=== PATIENT | female | born 1950 | race Caucasian/White ===

== ENCOUNTER → 2024-02-02 10:11 | Outpatient (REF) | payer MEDICARE, SELFPAY | LOC: RCS 10:11 | PROVIDERS: ATTENDING PHYSICIAN Surgery; FAMILY PHYSICIAN Internal Medicine | DX: Z01.810 Encounter for preprocedural cardiovascular examination (principal) | CPT/HCPCS: 93005 ==

== ENCOUNTER 2024-06-25 14:48 | Emergency (ER) | payer MEDICARE, SELFPAY ==
[2024-06-25] VITALS (9 sets, daily range): BP systolic 123–176; BP diastolic 70–121; BMI 23.4
--- NOTE | 2024-06-25 14:59 | ED.PDOC.TRB ---
ED Provider Triage
-
Patient seen by provider in Triage?: Seen in Triage
Attestation: A medical screening examination has been initiated by a qualified medical provider. Based on the assessment performed at this time, it has been determined that an emergent medical condition may exist and the patient has been informed
that further medical evaluation and possible additional diagnostic testing may be needed.
HPI: 74-year-old female with presents for evaluation of left arm heaviness associated with chest discomfort beginning today. The arm symptoms have been ongoing for the past several days. She has a known clotting disorder but is been compliant with
her Eliquis. No history of prior cardiac disease denies any exertional symptoms
GENERAL: Alert , in no apparent distress
EYE: No visual abnormalities.
NECK: Trachea midline
ENT: No visible abnormalities.
LUNGS: No acute respiratory distress
NEUROLOGICAL: Alert and oriented
SKIN: Skin intact. No visible changes.
MUSCULOSKELETAL: Moving extremities normally
PSYCH: Normal and appropriate interaction.
Assessment: Initial triage EKG is nonischemic. Patient appears clinically well does not pain external picture for cardiac angina nevertheless we will obtain cardiac labs including troponin
This is a medical evaluation conducted in person to initiate diagnostic evaluation and provide initial therapeutics. Please see further documentation by the treating clinician.
[2024-06-25 15:16] LABS: % Basophils 0.4 % (0-2); % Immature Granulocytes 1.3 % (0-0.5); % Monocytes 8.4 % (1.7-9.3); % Neutrophils 62.9 % (42.2-75.2); Absolute Eosinophils 0.1 10^3/uL (0-0.7); Absolute Immature Granulocytes 0.1 10^3/uL (0-0.05); Absolute Lymphocytes 1.8 10^3/uL (1.2-3.4); Absolute Monocytes 0.6 10^3/uL (0.1-0.6); Absolute Neutrophils 4.3 10^3/uL (1.4-6.5); Hematocrit 39.3 % (37.0-47.0); Hemoglobin 13.3 g/dL (12.0-16.0); Mean Corp Hgb Conc. 33.8 g/dL (33.0-37.0); Mean Corpuscular Hgb 30.2 pg (27.0-31.0); Mean Corpuscular Volume 89.3 fL (81.0-99.0); Mean Platelet Volume 9.9 fL (7.4-10.4); Nucleated Red Blood Cells % 0 %; Platelet Count 213 10^3/uL (130-400); Red Cell Dist. Width 14.2 % (11.5-14.5); White Blood Cell Count 6.8 10^3/uL (4.8-10.8)
[2024-06-25 15:31] LABS: ALT (SGPT) 18 U/L (0-35); AST (SGOT) 31 U/L (14-36); Albumin 4.9 g/dl (3.5-5.0); Alkaline Phosphatase 104 U/L (38-126); Blood Urea Nitrogen 19 mg/dl (7-17); Carbon Dioxide 25 mmol/L (22-30); Chloride 99 mmol/L (98-107); Glucose 120 mg/dl (70-99); Potassium 4.6 mmol/L (3.5-5.1); Sodium 138 mmol/L (135-145); Total Bilirubin 0.6 mg/dl (0.2-1.3); Total Protein 7.6 g/dl (6.3-8.2); eGFR > 60.00
[2024-06-25 15:43] LABS: Troponin I < 0.012 ng/ml
--- NOTE | 2024-06-25 17:53 | ED.GENMED ---
History of Present Illness
General
Chief Complaint: Cardiac Symptoms
Source: patient
Exam Limitations: none
Time Seen by Provider: 06/25/24 15:34
History of Present Illness
History of Present Illness:
Patient is a 74-year-old female with past medical history of hypertension, hyperlipidemia, coagulopathy for which she is chronically anticoagulated on Eliquis, who presents to the emergency department for evaluation of chest pain. Patient reports
that over the past 4 days, the patient has had intermittent pain over her left arm. She reports that it starts about usp down her upper arm and then extends about usp down into her forearm. Patient reports that she never gets pain into her
hand or fingers. She denies that she gets pain into her shoulder. Patient reports this pain seems to come and go, she reports it is actually worse at night when she is trying to sleep. Patient reports that associate with the pain is some numbness
to the same distribution. Patient denies any numbness of the hand or fingers. Patient denies any weakness of the left upper extremity. Patient reports that she thought was musculoskeletal in etiology but this morning became concerned when she had
a slight chest heaviness. Patient became concerned that this could be her heart and decided to come to the emergency department. Patient denies that the chest heaviness is present currently. Patient denies any recent diaphoresis, shortness of
breath, nausea, vomiting. Patient reports that she does see a hardness inspector and has a Holter monitor scheduled for later this week. She reports that she has had negative stress test in the past but none recently. Patient denies any known trauma or
injury to the left arm but states that she did have a mastectomy in October and just recently started to lift with weights. She reports that her weights are quite light though and are typically 2.5 or 5 pounds.
Past History
Past History
ED Past Medical History: Other (Hypercoagulable state, pulmonary embolism, DJD)
Social History
Tobacco: Former smoker
Alcohol: None
Drug: None
Personal:
Review of Systems
Review of Systems
Allergies reviewed?: Yes
All Other Systems: Not applicable
Constitutional: Reports no symptoms
EENT: Reports no symptoms
Respiratory: Reports no symptoms
Cardiac: Reports chest pain; Denies diaphoresis, palpitations or syncope
ABD/GI: Reports no symptoms
: Reports no symptoms
Musculoskeletal: Reports other (left arm pain)
Skin: Reports no symptoms
Neurological: Reports numbness; Denies weakness
Endocrine: Reports no symptoms
Hematologic/Lymphatic: Reports no symptoms
Psychiatric: Reports no symptoms
Phy Exam
General Physical Exam
General Presentation: well appearing and no apparent distress
General Skin: warm and dry
General Habitus: normal
General Mental: alert
General Hydration: appears well hydrated
ENT Exam
ENT Exam: EOMI, pharynx normal, neck supple and normocephalic
Eye Exam
Eye Exam: PERRL, cornea clear and conjunctiva normal
Cardiovascular Exam
Cardiovascular Exam: regular rate/rhythm, no edema, no murmur and normal peripheral pulses
Pulmonary Exam
Pulmonary Exam: lungs clear, no respiratory distress, no rales, no crackles, no rhonchi, no stridor, no wheezing and no cough
Gastrointestinal Exam
Gastrointestinal Exam: normal bowel sounds, non tender, soft, no organomegaly, no pulsatile mass and non distended
Neurological Exam
Neurological Exam: alert, oriented x3, no motor deficits and speech normal
Musculoskeletal Exam
Musculoskeletal Exam: full ROM, no edema and neuro vasc intact
Skin Exam
Skin Exam: normal color, warm/dry, no rash and no petechia
Psychiatric Exam
Psychiatric Exam: normal mood/affect
Course
Orders/Labs/Results
Orders:
Orders
06/25/24 14:49
EKG [Electrocardiogram (*1)] Urgent
Reason for Study: Palpitations
EKG- Treatment ONCE
06/25/24 15:09
Complete Blood Count/With Diff Urgent
Comprehensive Metabolic Panel Urgent
Troponin I Urgent
06/25/24 16:07
CR Chest - 2 Views Urgent
Comment:
Reason For Exam: chest pain
Abnormal Lab Results
06/25/24
15:09
Abs Immat Gran (auto) 0.1 H 10^3/uL
(0-0.05)
Immature Gran % 1.3 H %
(0-0.5)
BUN 19 H mg/dl
(7-17)
Glucose 120 H mg/dl
(70-99)
06/25/24 15:09
06/25/24 15:09
Vital Signs
Initial and Last Documented VS:
Initial Vital Signs
Temp Pulse Resp BP Pulse Ox
97.4 F 64 20 176/88 97
06/25/24 14:53 06/25/24 14:53 06/25/24 14:53 06/25/24 14:53 06/25/24 14:53
Last Documented Vital Signs
Temp Pulse Resp BP Pulse Ox
97.4 F 63 15 123/70 97
06/25/24 14:53 06/25/24 18:50 06/25/24 18:50 06/25/24 18:50 06/25/24 18:50
*EKG
Interpreted by ED Provider?: Yes
EKG Intrepretation Date: 06/25/24
EKG Intrepretation Time: 02:51
Interpretation: abnormal
Comparison EKG: no changes
Heart Rate: 63
Rate: normal
Rhythm: sinus
Roberts: left axis deviation
Interval: normal interval
QRS Pattern: normal QRS
Ischemia: non-specific ST changes
*Critical Care Note
Total Time (30-74mins, 75-104mins- exclusive of procedures): Not Applicable
Update Note
Update Note:
74-year-old female with history of hypertension, hyperlipidemia presents to the emergency department for evaluation of several days of intermittent left arm pain associated with some numbness in the left arm. Patient reports that it is only a
portion of her arm and does not extend into her hand or fingers. Patient reports this morning she did have an episode of chest heaviness. Patient states she is currently asymptomatic. On arrival, pt is initially hypertensive, however, this
improved during her ED stay, afebrile. On exam, pt is very well-appearing, she is in NAD, she has a normal cardiopulmonary exam, FROM of the LUE and is NVI. EKG was performed and is unchanged from prior. CXR demonstrates NAD. Labs are
unremarkable including negative troponin. Pt has remained stable for the entirety of her ED stay without recurrence of her chest heaviness. I suspect the patient's symptoms may be due to the fact that she started lifting weights again a few days
ago. Pt has a cardiology appointment later this week which she was encouraged to keep. Feel that the pt is safe for discharge to home with instructions on supportive care measures along with return precautions. She expressed understanding of the
plan and agreed.
ED Attending Note
-
Portions of this chart may have been created with voice recognition software.� Occasional wrong word or��sound alike� substitutions may have occurred due to the inherent limitations of voice recognition software.
Discharge Plan
Departure
Patient Disposition: Home (Routine Discharge)
Date of Disposition: 06/25/24
Time of Disposition: 17:41
Patient with high blood pressure during this ER visit?: Yes
Condition: Good
Covid-19: Not Applicable
Discharge Problem:
Arm pain, left, Arm paresthesia, left
Instructions: Paresthesia (DC), Musculoskeletal Pain
Prescriptions:
No Action
atenolol 25 MG tablet
25 mg PO DAILY
apixaban [Eliquis] 2.5 MG tablet
2.5 mg PO BID
amlodipine 5 MG tablet
5 mg PO HS
esomeprazole magnesium [Nexium 24HR] 20 MG capsule,delayed release(DR/EC)
20 mg PO DAILY
prochlorperazine maleate 5 MG tablet
5 mg PO Q8HPRN PRN (Reason: headaches or nausea) Qty: 15 1RF
Referrals:
Alma Rosa Borja MD [Family Provider] - Follow up in 2-3 days (Call for follow-up appointment)
Activity Restrictions/Additional Instructions:
You were seen in the emergency department for evaluation of intermittent pain in the left arm associated with intermittent numbness. You also notes a very mild short-lived discomfort in your chest. While you were in the emergency department you
had a normal EKG, CXR, and blood work. We do not believe your symptoms are due to a problem with your heart. Please continue to take your home medications. Please follow up with your primary care provider for further evaluation and treatment.
You may continue to take Tylenol for pain. Please return to the emergency department for severe chest pain, shortness of breath, persistent vomiting,
Interventions
Interventions:
*Risk Screen - Suicide Last Done: 06/25/24 14:53
*General Assessment Last Done: 06/25/24 14:53
*Neglect/Abuse Screening Last Done: 06/25/24 14:53
*ED COVID-19 Vaccine History Last Done: 06/25/24 16:39
*Nursing Disposition Last Done: 06/25/24 18:50
ED- Pulmonary Assessment Last Done: 06/25/24 16:39
ED- Cardiac Assessment Last Done: 06/25/24 16:37
Discharge Date and Time
Discharge Date/Time: 06/25/24 18:52
Print Language: BAHRAINI
== END 2024-06-25 18:52 | disposition home or self-care (01) ==
LOC: EMR 14:48
PROVIDERS: Physician Assistant; EMERGENCY PHYSICIAN Emergency Medicine; FAMILY PHYSICIAN Internal Medicine
DX: R20.2 Paresthesia of skin (principal); M79.602 Pain in left arm; R07.89 Other chest pain; R20.0 Anesthesia of skin; I10 Essential (primary) hypertension; E78.5 Hyperlipidemia, unspecified; D68.9 Coagulation defect, unspecified; Z79.01 Long term (current) use of anticoagulants; Z86.711 Personal history of pulmonary embolism; Z87.891 Personal history of nicotine dependence; Z90.10 Acquired absence of unspecified breast and nipple; Z88.2 Allergy status to sulfonamides; Z88.8 Allergy status to other drugs, medicaments and biological substances; Z91.040 Latex allergy status
CPT/HCPCS: 99283; 71046; 80053; 84484; 85025; 93005

== ENCOUNTER → 2024-07-11 09:49 | Outpatient (REF) | payer MEDICARE, SELFPAY | LOC: RCS 09:49 | PROVIDERS: ATTENDING PHYSICIAN Internal Medicine; REFERRING PHYSICIAN Student in an Organized Health Care Education/Training Program | DX: R55 Syncope and collapse (principal) | CPT/HCPCS: 93225; 93226 ==

== ENCOUNTER → 2024-07-15 15:48 | Outpatient (REF) | payer MEDICARE, SELFPAY | LOC: HWRAD 15:48 | PROVIDERS: ATTENDING PHYSICIAN Internal Medicine | DX: M54.12 Radiculopathy, cervical region (principal) | CPT/HCPCS: 72050 ==

== ENCOUNTER → 2024-08-21 12:58 | Outpatient (REF) | payer MEDICARE, SELFPAY | LOC: MRI 3T 12:58 | PROVIDERS: ATTENDING PHYSICIAN Internal Medicine; REFERRING PHYSICIAN Psychiatry & Neurology Neurology | DX: R51.9 Headache, unspecified (principal); Z79.01 Long term (current) use of anticoagulants; Z87.898 Personal history of other specified conditions; M54.12 Radiculopathy, cervical region | CPT/HCPCS: 70551; 72141 ==

== ENCOUNTER 2024-11-02 19:50 | Emergency (ER) | payer MEDICARE, SELFPAY ==
[2024-11-02 19:55] VITALS: BP 167/90
[2024-11-02 20:16] VITALS: BP 147/78
[2024-11-02 20:24] LABS: % Basophils 0.3 % (0-2); % Immature Granulocytes 0.1 % (0-0.5); % Lymphocytes 23.9 % (20.5-51.1); % Monocytes 8.7 % (1.7-9.3); Absolute Eosinophils 0.1 10^3/uL (0-0.7); Absolute Lymphocytes 1.7 10^3/uL (1.2-3.4); Absolute Monocytes 0.6 10^3/uL (0.1-0.6); Absolute Neutrophils 4.6 10^3/uL (1.4-6.5); Hematocrit 38.8 % (37.0-47.0); Hemoglobin 13.4 g/dL (12.0-16.0); Mean Corp Hgb Conc. 34.5 g/dL (33.0-37.0); Mean Corpuscular Hgb 30.5 pg (27.0-31.0); Mean Corpuscular Volume 88.2 fL (81.0-99.0); Mean Platelet Volume 9.9 fL (7.4-10.4); Nucleated Red Blood Cells % 0 %; Platelet Count 185 10^3/uL (130-400); Red Cell Dist. Width 13.5 % (11.5-14.5)
[2024-11-02 20:34] LABS: INR 1.02; PT 13.7 Sec (11.4-14.6)
[2024-11-02 20:43] LABS: ALT (SGPT) 16 U/L (0-35); AST (SGOT) 29 U/L (14-36); Albumin 4.7 g/dl (3.5-5.0); Alkaline Phosphatase 122 U/L (38-126); Blood Urea Nitrogen 19 mg/dl (7-17); Calcium 9.8 mg/dl (8.4-10.2); Carbon Dioxide 25 mmol/L (22-30); Chloride 98 mmol/L (98-107); Glucose 102 mg/dl (70-99); Potassium 4.3 mmol/L (3.5-5.1); Sodium 132 mmol/L (135-145); Total Bilirubin 0.3 mg/dl (0.2-1.3); Total Protein 7.4 g/dl (6.3-8.2); eGFR > 60.00
[2024-11-02 20:44] VITALS: BP 147/84
[2024-11-02 20:48] LABS: Troponin I < 0.012 ng/ml
[2024-11-02 21:00] VITALS: BP 127/76
--- NOTE | 2024-11-02 21:14 | ED.GENMED ---
History of Present Illness
General
Chief Complaint: Chest Pain
Source: patient and spouse
Time Seen by Provider: 11/02/24 20:00
History of Present Illness
History of Present Illness:
74-year-old female presents after she developed chest pain at home. Patient states this mild pain in the center of her chest. Patient states she was resting comfortably when it came on. She then checked her blood pressure and was noted to be
high. She is anticoagulated on Eliquis due to history of hypercoagulable state. Patient states the pain is resolved and only lasted a few minutes. She denies shortness of breath or palpitations. No history of coronary disease.
Past History
Past History
ED Past Medical History: Other (Hypercoagulable state, pulmonary embolism, DJD)
Social History
Tobacco: Former smoker
Alcohol: None
Drug: None
Personal:
Phy Exam
Physical Exam
Physical Exam:
CONSTITUTIONAL Patient alert and oriented to person, place and time. Well-appearing. Vital signs reviewed.
HEAD atraumatic, normocephalic.
EYES eyelids normal to inspection, Extraocular muscles intact, Conjunctiva normal, Sclera normal.
NECK normal range of motion, Trachea midline, no jugular venous distention.
RESPIRATORY CHEST No respiratory distress noted, Chest expansion equal, Bilateral breath sounds clear.
CARDIOVASCULAR regular rate and rhythm, Heart sounds normal.
ABDOMEN abdomen nontender, Bowel sounds normal. No distention.
BACK normal inspection, no obvious deformities
UPPER EXTREMITY range of motion normal, Motor strength normal, no cyanosis, no edema.
LOWER EXTREMITY range of motion normal, Motor strength normal, no cyanosis, no edema.
NEURO Speech normal, No focal motor deficits, Clem coma scale 15, Memory normal, Cranial Nerves intact to screening exam.
SKIN skin warm, dry, and normal in color.
Scores
Heart Score for Chest Pain Patients
STEMI patient?: No
History: Slightly or Non-Suspicious
ECG: Normal
Age: >/= 65 years
Risk Factors: 1 or 2 Risk Factors
Troponin: </= Normal Limit
Heart Score for Chest Pain Patients: 3
Heart Score Risk: 2.5% MACE over next 6 weeks
Course
Orders/Labs/Results
Orders:
Orders
11/02/24 19:51
EKG [Electrocardiogram (*1)] Urgent
Reason for Study: Chest Pain
EKG- Treatment ONCE
11/02/24 20:18
Complete Blood Count/With Diff Urgent
Comprehensive Metabolic Panel Urgent
PT/INR [Prothrombin Time] Urgent
Troponin I Urgent
11/02/24 21:14
CR Chest - 2 Views Urgent
Comment:
Reason For Exam: cp
11/02/24 21:16
EKG- Treatment ONCE
11/02/24 23:15
EKG [Electrocardiogram (*1)] Urgent
Reason for Study: Fatigue / Weakness
11/02/24 23:18
Troponin I Urgent
Abnormal Lab Results
11/02/24
20:18
Sodium 132 L mmol/L
(135-145)
BUN 19 H mg/dl
(7-17)
Glucose 102 H mg/dl
(70-99)
11/02/24 20:18
11/02/24 20:18
Vital Signs
Initial and Last Documented VS:
Initial Vital Signs
Temp Pulse Resp BP Pulse Ox
98.0 F 66 18 167/90 96
11/02/24 19:55 11/02/24 19:55 11/02/24 19:55 11/02/24 19:55 11/02/24 19:55
Last Documented Vital Signs
Temp Pulse Resp BP Pulse Ox
98.0 F 74 16 117/72 98
11/02/24 19:55 11/03/24 00:04 11/03/24 00:04 11/03/24 00:04 11/03/24 00:04
MDM/Problems Addressed
Differential Diagnosis Includes:
Musculoskeletal chest pain, acute coronary syndrome, pulmonary embolism, pneumothorax, pneumonia, aortic dissection, GERD
MDM/Problems Addressed:
Chest pain
Acute Exacerbation and/or Progression of Chronic Illness: HTN
*Radiology
Radiology exam reviewed: all reviewed NAD by ED Provider
*Pulse Oximetry
Patient hypoxic: no
*EKG
Interpreted by ED Provider?: Yes
Interpretation: normal
Rate: normal
Rhythm: sinus
Lindsay: normal axis
Interval: normal interval
QRS Pattern: normal QRS
Ischemia: no ischemia
*Package Handler Interpretation
Rate: normal
Interpretation: normal
Rhythm: sinus
*Critical Care Note
Total Time (30-74mins, 75-104mins- exclusive of procedures): Not Applicable
Data Reviewed
Review of Other/Old Records Reveals: Other (Prior stress test reviewed from March 2022)
Source: patient and spouse
Prescriptions/Medications Considered But Not Given:
Considered heparin but EKG normal initial troponin negative.
Patient Management
Escalation/DeEscalation of care consider admission/obs:
Well-appearing. Await second troponin. If negative. Okay for discharge and outpatient follow-up with cardiology. Patient already on Eliquis. No clinical concern for PE. Blood pressure is markedly improved. No hypoxia.
ED Attending Note
-
Portions of this chart may have been created with voice recognition software.� Occasional wrong word or��sound alike� substitutions may have occurred due to the inherent limitations of voice recognition software.
Discharge Plan
Departure
Patient Disposition: Home (Routine Discharge)
Date of Disposition: 11/02/24
Time of Disposition: 23:57
Patient with high blood pressure during this ER visit?: No
Discharge Problem:
Chest pain
Instructions: Chest Pain CBC Follow Up
Prescriptions:
No Action
atenolol 25 MG tablet
25 mg PO DAILY
apixaban [Eliquis] 2.5 MG tablet
2.5 mg PO BID
amlodipine 5 MG tablet
5 mg PO HS
esomeprazole magnesium [Nexium 24HR] 20 MG capsule,delayed release(DR/EC)
20 mg PO DAILY
prochlorperazine maleate 5 MG tablet
5 mg PO Q8HPRN PRN (Reason: headaches or nausea) Qty: 15 1RF
Referrals:
Alma Rosa Borja MD [Family Provider] -
Activity Restrictions/Additional Instructions:
Please avoid strenuous or exertional activity until cleared by cardiology. Please see cardiology in the next 48 hours for reevaluation. Return immediately for worsening pain, shortness breath, palpitations, sweating, nausea, weakness of any kind,
numbness, tingling or any other concerns.
Cardiology has been notified and a follow up appointment has been requested. Someone will call you on the next business day to schedule a follow up appointment.
Interventions
Interventions:
*Risk Screen - Suicide Last Done: 11/02/24 20:17
*General Assessment Last Done: 11/02/24 20:17
*Neglect/Abuse Screening Last Done: 11/02/24 20:17
ED- Fall Risk Assessment Last Done: 11/02/24 23:35
*ED COVID-19 Vaccine History Last Done: 11/02/24 20:17
*Nursing Disposition Last Done: 11/03/24 00:04
ED- Cardiac Assessment Last Done: 11/02/24 23:35
Discharge Date and Time
Discharge Date/Time: 11/03/24 00:04
Print Language: ROMANSH
[2024-11-02 22:00] VITALS: BP 120/67
[2024-11-02 23:00] VITALS: BP 114/65
[2024-11-02 23:53] LABS: Troponin I < 0.012 ng/ml
[2024-11-03 00:04] VITALS: BP 117/72
== END 2024-11-03 00:04 | disposition home or self-care (01) ==
LOC: EMR 19:50
PROVIDERS: EMERGENCY PHYSICIAN Emergency Medicine; FAMILY PHYSICIAN Internal Medicine
DX: R07.9 Chest pain, unspecified (principal); D68.59 Other primary thrombophilia; Z86.711 Personal history of pulmonary embolism; Z79.01 Long term (current) use of anticoagulants; Z87.891 Personal history of nicotine dependence
CPT/HCPCS: 99285; 71046; 80053; 84484; 85025; 85610; 93005

== ENCOUNTER → 2025-01-25 12:28 | Outpatient (REF) | payer MEDICARE, SELFPAY | LOC: MRI 3T 12:28 | PROVIDERS: ATTENDING PHYSICIAN Physician Assistant Medical; FAMILY PHYSICIAN Internal Medicine | DX: M54.16 Radiculopathy, lumbar region (principal); M25.551 Pain in right hip | CPT/HCPCS: 72148; 73721 ==

== ENCOUNTER → 2025-03-25 09:37 | Outpatient (REF) | payer MEDICARE, SELFPAY | LOC: HWRAD 09:37 | PROVIDERS: ATTENDING PHYSICIAN Internal Medicine | DX: R10.11 Right upper quadrant pain (principal) | CPT/HCPCS: 76700 ==

== ENCOUNTER → 2025-03-27 14:26 | Outpatient (REF) | payer MEDICARE, SELFPAY | LOC: RCS 14:26 | PROVIDERS: ATTENDING PHYSICIAN Internal Medicine Cardiovascular Disease; FAMILY PHYSICIAN Internal Medicine; OTHER PHYSICIAN Student in an Organized Health Care Education/Training Program | DX: E78.5 Hyperlipidemia, unspecified (principal); I10 Essential (primary) hypertension; D68.51 Activated protein C resistance; R55 Syncope and collapse | CPT/HCPCS: 93306 ==

== ENCOUNTER → 2025-05-21 12:18 | Outpatient (REF) | payer MEDICARE, SELFPAY | LOC: HWRAD 12:18 | PROVIDERS: ATTENDING PHYSICIAN Student in an Organized Health Care Education/Training Program; FAMILY PHYSICIAN Internal Medicine | DX: I10 Essential (primary) hypertension (principal); E78.5 Hyperlipidemia, unspecified; R07.2 Precordial pain; R55 Syncope and collapse; R51.9 Headache, unspecified; Z87.898 Personal history of other specified conditions | CPT/HCPCS: 70450; 75571 ==

== ENCOUNTER → 2025-10-03 13:07 | Outpatient (REF) | payer MEDICARE, SELFPAY | LOC: RAD 13:07 | PROVIDERS: ATTENDING PHYSICIAN Internal Medicine | DX: R07.9 Chest pain, unspecified (principal) | CPT/HCPCS: 71046 ==